=== PATIENT | female | born 2000 | race Caucasian/White ===

== ENCOUNTER → 2019-01-15 | Outpatient (REF) | payer OTHER ==
[2019-01-15 15:48] LABS: HEMATOCRIT 36.6 % (36.0-47.0); HEMOGLOBIN 12.7 g/dl (12.0-15.5); MEAN CORPUSCULAR HEMOGLOBIN 30.1 pg (27.0-33.0); MEAN CORPUSCULAR HGB CONC 34.7 g/dl (32.0-36.5); MEAN CORPUSCULAR VOLUME 86.7 fl (80.0-96.0); PLATELET COUNT, AUTOMATED 332 10^3/uL (150-450); RED BLOOD COUNT 4.22 10^6/uL (4.00-5.40); WHITE BLOOD COUNT 10.8 10^3/uL (4.0-10.0)
[2019-01-15 17:54] LABS: HCG, SERUM QUANTITATIVE 100939 MIU/ML; HEPATITIS C VIRUS ABY INDEX 0.1 INDEX (<0.8); HIV 1&2 SCREEN CENTAUR NEGATIVE (NEGATIVE); RUBELLA IgG QUALITATIVE IMMUNE (IMMUNE)
== END ==
LOC: M LAB REF 13:00
PROVIDERS: ATTEND Obstetrics & Gynecology
DX: Z32.01 Encounter for pregnancy test, result positive (principal); O36.80X0 Pregnancy with inconclusive fetal viability, not applicable or unspecified; Z3A.00 Weeks of gestation of pregnancy not specified

== ENCOUNTER → 2019-01-19 | Outpatient (CLI) | payer OTHER ==
--- NOTE | 2019-01-19 19:18 | REP ---
First trimester obstetric ultrasound for viability: There is a single intrauterine gestation. The heart rate is 168 beats per minute. The pole crown-rump length is 2.2 cm corresponding to a gestational age of 8 weeks 6 days. The MAYTE is 08/25/2019. Gestational age by LMP is 10 weeks 2 days. The MAYTE is 08/15/2019. There is a normal size yolk sac measuring 4.1 mm in diameter. Electronically Signed by Denis Valenzuela MD 01/19/2019 07:11 P
== END ==
LOC: M RAD 17:33 → EDUNIT# 18:00
PROVIDERS: ATTEND Obstetrics & Gynecology
DX: Z34.80 Encounter for supervision of other normal pregnancy, unspecified trimester (principal); Z3A.08 8 weeks gestation of pregnancy

== ENCOUNTER → 2019-02-24 | Outpatient (REF) | payer OTHER | LOC: M LAB REF 12:27 | PROVIDERS: ATTEND Obstetrics & Gynecology | DX: O02.1 Missed abortion (principal) ==

== ENCOUNTER 2019-03-29 22:30 | Emergency (ER) | payer OTHER ==
[~2019-03-29] VITALS: Ht 162.6 cm; Wt 56.8 kg
[2019-03-30 01:45] VITALS: BP 115/66
== END 2019-03-30 01:49 | disposition home or self-care (01) ==
LOC: M ED 22:30
DX: R79.89 Other specified abnormal findings of blood chemistry (principal)

== ENCOUNTER → 2019-04-06 | Outpatient (CLI) | payer OTHER | LOC: M LAB 16:28 | PROVIDERS: ATTEND Obstetrics & Gynecology | DX: O02.1 Missed abortion (principal) ==

== ENCOUNTER → 2019-05-11 | Outpatient (CLI) | payer OTHER | LOC: M LAB 14:29 | PROVIDERS: ATTEND Obstetrics & Gynecology | DX: O02.1 Missed abortion (principal) ==

== ENCOUNTER → 2020-06-28 | Outpatient (REF) | payer OTHER ==
[2020-06-28 16:04] LABS: HEMATOCRIT 34.6 % (36.0-47.0); HEMOGLOBIN 11.8 g/dl (12.0-15.5); MEAN CORPUSCULAR HEMOGLOBIN 29.5 pg (27.0-33.0); MEAN CORPUSCULAR HGB CONC 34.1 g/dl (32.0-36.5); MEAN CORPUSCULAR VOLUME 86.5 fl (80.0-96.0); PLATELET COUNT, AUTOMATED 253 10^3/uL (150-450); WHITE BLOOD COUNT 10.1 10^3/uL (4.0-10.0)
[2020-06-28 20:08] LABS: HIV 1&2 SCREEN CENTAUR NEGATIVE (NEGATIVE)
[2020-06-30 13:10] LABS: HEPATITIS C VIRUS ABY INDEX < 0.0 INDEX (<0.8)
== END ==
LOC: M PLALAB 14:16
PROVIDERS: ATTEND Obstetrics & Gynecology
DX: Z34.80 Encounter for supervision of other normal pregnancy, unspecified trimester (principal)

== ENCOUNTER → 2020-07-10 | Outpatient (CLI) | payer OTHER | LOC: M WHC 15:47 | PROVIDERS: ATTEND Obstetrics & Gynecology | DX: Z53.20 Procedure and treatment not carried out because of patient's decision for unspecified reasons (principal) ==

== ENCOUNTER → 2020-08-08 | Outpatient (CLI) | payer OTHER ==
--- NOTE | 2020-08-08 15:55 | REP ---
INDICATION: ANATOMY COMPARISON: None. TECHNIQUE: Transabdominal obstetrical ultrasound with color Doppler evaluation. FINDINGS: Examination demonstrates a single live intrauterine in variable presentation. motion is identified by technologist. Placenta is noted anterior and grade 1 without evidence for placenta previa or abruption. Amniotic fluid volume is normal. Cervix measures 3.7 cm in length and appears closed.. Gestational age by LMP 18 weeks 5 days with MAYTE 01/04/2021. Gestational age by current measurements 19 weeks 1 day with MAYTE 01/01/2021. FHR equals 163 beats per minute. BPD: 4.3 cm at 19 weeks 0 days HC: 16.1 cm at 18 weeks 6 days AC: 13.5 cm at 19 weeks 0 days FL: 3.1 cm at 19 weeks 4 days HL: 3.0 cm at 19 weeks 5 days HC/AC: 1.19 Estimated weight 278 grams (71stpercentile). Anatomical assessment demonstrates normal structures including cranium, cavum, cerebellum/posterior fossa, facial features, lungs, four-chamber heart/ventricular outflow tracts, diaphragm, stomach, cord insertion/three-vessel cord, kidneys/bladder, and extremities. Small bilateral choroid plexus cysts and limited evaluation of the spine may warrant follow-up. IMPRESSION: Single live intrauterine in variable presentation demonstrating appropriate interval growth. Choroid plexus cysts and incomplete evaluation of the spine may warrant follow-up. <Electronically signed by Carter Christian > 08/08/20 [id number]
== END ==
LOC: M WHC 13:52
PROVIDERS: ATTEND Obstetrics & Gynecology
DX: Z36.89 Encounter for other specified antenatal screening (principal); Z3A.14 14 weeks gestation of pregnancy

== ENCOUNTER → 2020-08-21 | Outpatient (CLI) | payer OTHER | LOC: M PLALAB 15:41 | PROVIDERS: ATTEND Obstetrics & Gynecology | DX: O28.3 Abnormal ultrasonic finding on antenatal screening of mother (principal); Z53.9 Procedure and treatment not carried out, unspecified reason ==

== ENCOUNTER → 2020-08-21 | Outpatient (CLI) | payer OTHER | LOC: M WHC 10:51 | PROVIDERS: ATTEND Obstetrics & Gynecology | DX: Z3A.20 20 weeks gestation of pregnancy (principal); Z53.9 Procedure and treatment not carried out, unspecified reason ==

== ENCOUNTER → 2020-09-07 | Outpatient (CLI) | payer OTHER ==
--- NOTE | 2020-09-08 07:06 | REP ---
INDICATION: F/U ANATOMY COMPARISON: 08/08/2020 TECHNIQUE: Transabdominal obstetrical ultrasound with color Doppler evaluation. FINDINGS: Examination demonstrates a single live intrauterine in breech presentation. motion is identified by technologist. Placenta is noted anterior and grade 1 without evidence for placenta previa or abruption. Amniotic fluid volume is normal. Cervix measures 4.1 cm in length and appears closed.. Gestational age by LMP 23 weeks 0 days with MAYTE 01/04/2021. Gestational age by current measurements 23 weeks 2 days with MAYTE 01/02/2021. FHR equals 155 beats per minute. Estimated weight 562 grams (47thpercentile). Anatomical assessment demonstrates normal structures including cranium, choroid plexus, cavum, cerebellum/posterior fossa, facial features, lungs, diaphragm, stomach, cord insertion/three-vessel cord, kidneys/bladder, spine, and extremities. IMPRESSION: Single live intrauterine in breech presentation demonstrating appropriate interval growth. In conjunction with prior examination anatomical assessment is complete and normal. <Electronically signed by Carter Christian > 09/08/20 0702
== END ==
LOC: M WHC 13:58
PROVIDERS: ATTEND Obstetrics & Gynecology
DX: Z36.2 Encounter for other antenatal screening follow-up (principal); Z3A.23 23 weeks gestation of pregnancy; O32.1XX0 Maternal care for breech presentation, not applicable or unspecified

== ENCOUNTER → 2020-09-19 | Outpatient (REF) | payer OTHER | LOC: M PLALAB 09:11 | PROVIDERS: ATTEND Obstetrics & Gynecology | DX: Z34.82 Encounter for supervision of other normal pregnancy, second trimester (principal); Z3A.24 24 weeks gestation of pregnancy; Z53.9 Procedure and treatment not carried out, unspecified reason ==

== ENCOUNTER → 2020-10-09 | Outpatient (REF) | payer OTHER ==
[2020-10-09 15:41] LABS: HEMATOCRIT 30.9 % (36.0-47.0); HEMOGLOBIN 10.2 g/dl (12.0-15.5); MEAN CORPUSCULAR HEMOGLOBIN 29.7 pg (27.0-33.0); MEAN CORPUSCULAR VOLUME 90.1 fl (80.0-96.0); PLATELET COUNT, AUTOMATED 305 10^3/uL (150-450); RED BLOOD COUNT 3.43 10^6/uL (4.00-5.40); WHITE BLOOD COUNT 13.5 10^3/uL (4.0-10.0)
== END ==
LOC: M PLALAB 11:58
PROVIDERS: ATTEND Obstetrics & Gynecology
DX: Z3A.24 24 weeks gestation of pregnancy (principal); Z36.89 Encounter for other specified antenatal screening

== ENCOUNTER → 2020-11-15 | Outpatient (REF) | payer OTHER ==
[2020-11-16 12:16] LABS: APPEARANCE, URINE HAZY (CLEAR); BACTERIA, URINE AUTO 1+ (NEGATIVE); BILIRUBIN, URINE AUTO NEGATIVE (NEGATIVE); BLOOD, URINE BLOOD NEGATIVE (NEGATIVE); CALCIUM OXALATE CRYSTALS SMALL; COLOR, URINE YELLOW (YELLOW); GLUCOSE, URINE (UA) AUTO NEGATIVE (NEGATIVE); KETONE, URINE AUTO NEGATIVE (NEGATIVE); LEUKOCYTE ESTERASE, URINE AUTO NEGATIVE (NEGATIVE); MUCUS, URINE SMALL (NEGATIVE); NITRITE, URINE AUTO NEGATIVE (NEGATIVE); PROTEIN, URINE AUTO NEGATIVE (NEGATIVE); RBC, URINE AUTO 3 /HPF (0-3); SPECIFIC GRAVITY URINE AUTO 1.014 (1.002-1.035); SQUAMOUS EPITHELIAL CELL UR AU 3 /HPF (0-6); UROBILINOGEN, URINE AUTO 0.2 mg/dL (0.0-2.0); WBC, URINE AUTO 4 /HPF (0-3)
== END ==
LOC: M SFHCWAGY 11:06
PROVIDERS: ATTEND Advanced Practice Midwife
DX: Z34.83 Encounter for supervision of other normal pregnancy, third trimester (principal); Z3A.32 32 weeks gestation of pregnancy

== ENCOUNTER → 2020-12-04 | Outpatient (REF) | payer OTHER | LOC: M SFHCWAGY 12:59 | PROVIDERS: ATTEND Obstetrics & Gynecology | DX: Z36.89 Encounter for other specified antenatal screening (principal); Z3A.35 35 weeks gestation of pregnancy ==

== ENCOUNTER → 2020-12-08 | Outpatient (CLI) | payer OTHER ==
[2020-12-08 15:46] LABS: ALBUMIN 2.8 GM/DL (3.2-5.2); ALT/SGPT 21 U/L (12-78); BILIRUBIN,DIRECT < 0.1 MG/DL (0.0-0.2); BILIRUBIN,TOTAL 0.3 MG/DL (0.2-1.0)
== END ==
LOC: M PLALAB 13:35
PROVIDERS: ATTEND Advanced Practice Midwife
DX: L29.9 Pruritus, unspecified (principal)

== ENCOUNTER 2021-01-04 13:21 | Inpatient (IN) | payer OTHER ==
[2021-01-04] VITALS (25 sets, daily range): BP systolic 114–147; BP diastolic 67–106
[~2021-01-04] VITALS: Ht 160 cm; Wt 67.7 kg
[2021-01-04] MEDS ORDERED: PRENTAB9 PO (13:42)
[2021-01-04] MEDS ORDERED: TUMS500C PO (13:42)
[2021-01-04] MEDS ORDERED: CELE20TA PO (13:42)
[2021-01-04] MEDS ORDERED: PEPC1TAB5 PO (13:42)
[2021-01-04] MEDS ORDERED: HOME MED LIST COMPLETE! XX SCH (13:45)
[2021-01-04] MEDS ORDERED: TRANEXAMIC ACID INJection 1,000 MG in NS 100 ML IV PRN (14:05)
[2021-01-04] MEDS ORDERED: CARBOPROST TROMETHAMINE 250 MCG/ML AMP IM PRN (14:05)
[2021-01-04] MEDS ORDERED: OXYTOCIN INJ 10 UNITS/ML VIAL (J2590) IM PRN (14:05)
[2021-01-04] MEDS ORDERED: OXYTOCIN INJ 10 UNITS/ML VIAL (J2590) IV PRN (14:05)
[2021-01-04] MEDS ORDERED: LIDOCAINE 1% MDV 20ML VIAL INFIL PRN (14:05)
[2021-01-04] MEDS ORDERED: OXYTOCIN DRIP 30 UNITS in IV 1 EA IV PRN ×4 (14:05)
[2021-01-04] MEDS ORDERED: METHYLERGONOVINE MALEATE 0.2 MG/ML VIAL (J2210) IM PRN (14:05)
[2021-01-04] MEDS: LR 1,000 ML IV SCH ×3 (14:28→20:01)
[2021-01-04] MEDS ORDERED: FENTANYL/ROPIVACAINE/NACL BAG 100 ML EPIDURAL SCH (14:45)
[2021-01-04] MEDS ORDERED: EPIDURAL/PCA KEYS XX PRN (14:45)
[2021-01-04] MEDS ORDERED: diphenhydrAMINE 50MG/ML VIAL (J1200) IV PRN (14:45)
[2021-01-04] MEDS ORDERED: LACTATED RINGER'S 1000 ML IV PRN (14:45)
[2021-01-04] MEDS ORDERED: ONDANSETRON 4MG/2ML VIAL IV PRN (14:45)
[2021-01-04] MEDS ORDERED: NALOXONE INJ 0.4MG/1ML VIAL (J2310 PER 1MG) IV PRN (14:45)
[2021-01-04] MEDS ORDERED: ePHEDrine SULFATE 25 MG/5 ML(5MG/ML) SYRINGE IV PRN (14:45)
[2021-01-04] MEDS ORDERED: EPIDURAL COMMENT XX SCH (14:45)
[2021-01-04] MEDS ORDERED: REFRIGERATOR IV KEYS XX PRN (14:45)
[2021-01-04 14:46] LABS: HEMATOCRIT 35.7 % (36.0-47.0); HEMOGLOBIN 12.4 g/dl (12.0-15.5); MEAN CORPUSCULAR HEMOGLOBIN 29.8 pg (27.0-33.0); MEAN CORPUSCULAR HGB CONC 34.7 g/dl (32.0-36.5); MEAN CORPUSCULAR VOLUME 85.8 fl (80.0-96.0); PLATELET COUNT, AUTOMATED 286 10^3/uL (150-450); RED BLOOD COUNT 4.16 10^6/uL (4.00-5.40); WHITE BLOOD COUNT 15.7 10^3/uL (4.0-10.0)
[2021-01-04] MEDS ORDERED: FENTANYL 2MCG/ML ROPIVACAINE 0.2% IN 0.9% NACL 100ML IVBAG As Ordered ONE (14:51)
[2021-01-04] MEDS ORDERED: METHYLERGONOVINE MALEATE 0.2 MG TAB PO PRN (20:50)
[2021-01-04] MEDS ORDERED: DIBUCAINE 1% OINTMENT 30GM TOP PRN (20:50)
[2021-01-04] MEDS ORDERED: IBUPROFEN 600MG TAB PO PRN (20:50)
[2021-01-04] MEDS ORDERED: ACETAMINOPHEN TAB 650MG DOSE (2X325MG) PO PRN (20:50)
[2021-01-04] MEDS ORDERED: RHOGAM 300 MCG (1500 IU) INJ (J2790) IM SCH (20:50)
[2021-01-04] MEDS ORDERED: MEASLES,MUMPS,RUBELLA VACCINE INJ (MMR-II) (90707) SC SCH (20:50)
[2021-01-04] MEDS ORDERED: ACETAMINOPHEN 500 MG TAB PO PRN (20:50)
[2021-01-04] MEDS ORDERED: DOCUSATE SODIUM 100MG CAPSULE PO PRN (20:50)
[2021-01-04] MEDS: IBUPROFEN 800 MG TAB PO PRN (21:06)
[2021-01-05 05:34] VITALS: BP 130/74
[2021-01-05] MEDS: PRENATAL VITAMINS CHEWABLE TABLET PO SCH (07:55)
[2021-01-05] MEDS: IBUPROFEN 800 MG TAB PO PRN ×2 (07:55→16:50)
[2021-01-05 18:04] VITALS: BP 122/68
[2021-01-05] MEDS ORDERED: CitaloPRAM (CeleXA) 20 MG TAB PO SCH (22:00)
[2021-01-06 05:40] VITALS: BP 110/71
[2021-01-06] MEDS: PRENATAL VITAMINS CHEWABLE TABLET PO SCH (09:53)
[2021-01-06] MEDS: IBUPROFEN 800 MG TAB PO PRN (09:53)
[2021-01-06] MEDS ORDERED: IBUP80TA PO (11:53)
[2021-01-06] MEDS ORDERED: ACET-683 PO (11:53)
== END 2021-01-06 16:30 | disposition home or self-care (01) | DRG 807 ==
LOC: M LDO 13:21 → M LDI 14:10 → M OBS 21:46
PROVIDERS: ADMIT Obstetrics & Gynecology; ATTEND Obstetrics & Gynecology
PROC: 10E0XZZ Delivery of Products of Conception, External Approach (ICD-10-PCS; principal; 2021-01-04)
PROC: 10907ZC Drainage of Amniotic Fluid, Therapeutic from Products of Conception, Via Natural or Artificial Opening (ICD-10-PCS; 2021-01-04)
DX: O99.344 Other mental disorders complicating childbirth (principal); Z37.0 Single live birth; Z3A.40 40 weeks gestation of pregnancy; O99.02 Anemia complicating childbirth; D64.9 Anemia, unspecified; O69.81X0 Labor and delivery complicated by cord around neck, without compression, not applicable or unspecified

== ENCOUNTER → 2021-11-01 | Outpatient (REF) | payer OTHER ==
[~2021-11-01] MED LIST: ACET-683 PO; CELE20TA PO; IBUP80TA PO; PEPC1TAB5 PO; PRENTAB9 PO; TUMS500C PO
== END ==
LOC: M LAB REF 15:58
PROVIDERS: ATTEND Otolaryngology
DX: K11.6 Mucocele of salivary gland (principal)

== ENCOUNTER 2022-03-27 19:43 | Emergency (ER) | payer OTHER ==
[~2022-03-27] VITALS: Ht 160 cm; Wt 56.8 kg
[2022-03-27 19:43] VITALS: BP 114/92
[2022-03-27] MEDS ORDERED: ACETAMINOPHEN TAB 650MG DOSE (2X325MG) PO ONE (21:55)
[2022-03-27] MEDS ORDERED: IBUPROFEN 600MG TAB PO ONE (22:45)
== END 2022-03-27 22:57 | disposition home or self-care (01) ==
LOC: M ED 19:43
DX: J09.X2 Influenza due to identified novel influenza A virus with other respiratory manifestations (principal); F41.9 Anxiety disorder, unspecified; F32.9 Major depressive disorder, single episode, unspecified; Z79.899 Other long term (current) drug therapy

== ENCOUNTER 2022-11-16 16:49 | Emergency (ER) | payer OTHER ==
[~2022-11-16] VITALS: Ht 160 cm; Wt 55.7 kg
[2022-11-16 16:50] VITALS: BP 146/85; TEMP 98.1; O2SAT 99
[2022-11-16] MEDS ORDERED: ONDANSETRON 4MG ORAL DISINTEGRATING TAB PO ONE (18:00)
[2022-11-16] MEDS ORDERED: ONDA4TAB6 PO (18:38)
[2022-11-16] MEDS ORDERED: IBUPROFEN 600MG TAB PO ONE (18:40)
[2022-11-16] MEDS ORDERED: ACETAMINOPHEN TAB 650MG DOSE (2X325MG) PO ONE (18:40)
== END 2022-11-16 18:51 | disposition home or self-care (01) ==
LOC: M ED 16:49
DX: S09.90XA Unspecified injury of head, initial encounter (principal); Y04.0XXA Assault by unarmed brawl or fight, initial encounter; Y92.89 Other specified places as the place of occurrence of the external cause; Y93.89 Activity, other specified; Y99.8 Other external cause status; J45.909 Unspecified asthma, uncomplicated; F41.9 Anxiety disorder, unspecified; F32.A Depression, unspecified; Z79.899 Other long term (current) drug therapy

== ENCOUNTER → 2024-12-09 | Outpatient (REF) ==
[~2024-12-09] MED LIST changes: +ONDA-282 PO
== END ==
LOC: M CFLAB 14:06
DX: N39.0 Urinary tract infection, site not specified (principal)